=== PATIENT | female | born 1945 | race Caucasian/White ===

== ENCOUNTER → 2017-05-30 | Outpatient (CLI) | payer OTHER, MEDICAID | LOC: BHFA 10:45 | PROVIDERS: ATTEND Internal Medicine Cardiovascular Disease | DX: R01.1 Cardiac murmur, unspecified (principal) ==

== ENCOUNTER → 2017-06-19 | Outpatient (CLI) | payer OTHER, MEDICAID | LOC: BHFA 10:45 | PROVIDERS: ATTEND Internal Medicine Interventional Cardiology | DX: I10 Essential (primary) hypertension (principal); E78.5 Hyperlipidemia, unspecified ==

== ENCOUNTER → 2017-06-26 | Outpatient (CLI) | payer OTHER, MEDICAID | LOC: FIMAGING 15:30 | PROVIDERS: ATTEND Family Medicine | DX: M48.06 Spinal stenosis, lumbar region (principal); M54.16 Radiculopathy, lumbar region; M51.34 Other intervertebral disc degeneration, thoracic region; M51.35 Other intervertebral disc degeneration, thoracolumbar region; D64.9 Anemia, unspecified; N39.41 Urge incontinence; R01.1 Cardiac murmur, unspecified; M51.36 Other intervertebral disc degeneration, lumbar region; M48.07 Spinal stenosis, lumbosacral region ==

== ENCOUNTER → 2017-11-13 | Outpatient (CLI) | payer OTHER, MEDICAID | LOC: FIMAGING 13:10 | PROVIDERS: ATTEND Physician Assistant | DX: Z12.31 Encounter for screening mammogram for malignant neoplasm of breast (principal); Z80.3 Family history of malignant neoplasm of breast | CPT/HCPCS: G0202 ==

== ENCOUNTER → 2017-11-19 | Outpatient (CLI) | payer OTHER, MEDICAID | LOC: BMCIMAGING 07:13 | PROVIDERS: ATTEND Physician Assistant | DX: R16.0 Hepatomegaly, not elsewhere classified (principal); E66.9 Obesity, unspecified ==

== ENCOUNTER 2018-03-15 17:14 | Emergency (ER) | payer OTHER, MEDICAID ==
[2018-03-15 17:30] VITALS: BP 179/77
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
== END 2018-03-15 20:06 | disposition home or self-care (01) ==
LOC: EEVIPCON 17:14
DX: S80.01XA Contusion of right knee, initial encounter (principal); I10 Essential (primary) hypertension; J45.909 Unspecified asthma, uncomplicated; F17.200 Nicotine dependence, unspecified, uncomplicated; Z79.82 Long term (current) use of aspirin; V03.99XA Pedestrian with other conveyance injured in collision with car, pick-up truck or van, unspecified whether traffic or nontraffic accident, initial encounter; Y92.480 Sidewalk as the place of occurrence of the external cause; Y99.8 Other external cause status; Y93.55 Activity, bike riding

== ENCOUNTER → 2018-03-31 | Outpatient (CLI) | payer OTHER, MEDICAID | LOC: FIMAGING 16:41 | PROVIDERS: ATTEND Family Medicine | DX: M50.30 Other cervical disc degeneration, unspecified cervical region (principal) ==

== ENCOUNTER 2018-05-19 11:03 | Day surgery (SDC) | payer OTHER, MEDICAID ==
[2018-05-19] MEDS ORDERED: LIDOCAINE 1% 2 ML INJ ID PRN (11:19)
[2018-05-19] MEDS ORDERED: LR 1,000 ML IV ONE (11:19)
--- NOTE | 2018-05-19 12:05 | PDGENHP ---
History & Physical Chief Complaint: Diarrhea History of Present Illness: Chronic diarrhea Pertinent Past, Social, Family History: Sleep apnea. Neuropathy. Chronic pain. Obesity. No tobacco or ETOH Relevant Physical Exam: NAD. Dental implants. CTA B/L with diminshed respiratory sounds. RRR TRIP 2/6 LSB. Obese. Soft. NT/ND. NABS. No edema Cardiorespiratory Assessment: ASA III. Colonoscopy with MAC.
--- NOTE | 2018-05-19 12:11 | CPEKG ---
Heart Rate: 64 RR Interval: 938 P-R Interval: 180 QRSD Interval: 98 QT Interval: 452 QTC Interval: 467 P [place]: 52 QRS [place]: 19 T Wave [place]: 60 EKG Severity - NORMAL ECG - EKG Impression: SINUS RHYTHM Electronically Signed By: Frandy Molina 19-May-2018 15:15:27
--- NOTE | 2018-05-19 12:51 | PDANEPAE ---
ANE History of Present Illness 72 year old female for colonoscopy. ANE Past Medical History - Cardiovascular History Hx Hypertension: Yes Hx Arrhythmias: No Hx Coronary Artery / Peripheral Vascular Disease: No Hx CHF / Valvular Disease: Yes - Pulmonary History Hx COPD: Yes Hx Asthma/Reactive Airway Disease: Yes Hx Recent Upper Respiratory Infection: Yes Hx Oxygen in Use at Home: Yes Hx Sleep Apnea: Yes Sleep Apnea Screening Result - Last Documented: Positive Pulmonary History Comment: Oxygen use at night/sleeping - Neurologic History Hx Cerebrovascular Accident: Yes Hx Seizures: No Hx Dementia: No Neurologic History Comment: TIA's last year - Endocrine History Hx Diabetes: No Hypothyroid: No Hyperthyroid: No - Renal History Hx Renal Disorders: Yes Renal History Comment: frequency and incontinence - Liver History Hx Hepatic Disorders: No - Neurological & Psychiatric Hx Hx Neurological and Psychiatric Disorders: Yes Neurological / Psychiatric History Comment: Bipolar - Cancer History Hx Cancer: No - Congenital Disorder History Hx Congenital Disorders: No - GI History Hx Gastrointestinal Disorders: No - Other Health History Other Health History: Dermatitis - Chronic Pain History Chronic Pain: Yes - Surgical History Prior Surgeries: Right Hip Replacement 2012. All Teeth Extracted 2011. Right Knee Replacement 2010. Left Shoulder Rotator Cuff 2003. Broken Nose surgery x 3 1985. Benign Colon Polyps. Benign Left Breast Biopsy's ANE Review of Systems Review of systems is: negative Review of Systems: - Exercise capacity Exercise capacity: <4 METS METS (RN): 2 METS ANE Patient History - Allergies Allergies/Adverse Reactions: haloperidol [From Haldol] Allergy (Intermediate, Verified 03/15/18 17:23) made me crazy haloperidol lactate [From Haldol] Allergy (Intermediate, Verified 03/15/18 17:23 ) made me crazy hydrocortisone [Hydrocortisone] Allergy (Intermediate, Verified 03/15/18 17:23) RASH, SWELLING, ITCHING amlodipine Allergy (Verified 03/15/18 17:32) chlorpromazine [From Thorazine] Allergy (Verified 03/15/18 17:32) prednisone Allergy (Verified 05/19/18 11:45) Proton Pump Inhibitors Allergy (Verified 03/15/18 17:32) Sulfa (Sulfonamide Antibiotics) Allergy (Verified 03/15/18 17:23) SORE THROAT,FEVER,MOUTH BLISTERS tramadol [From Ultram] Allergy (Verified 03/15/18 17:32) venlafaxine Allergy (Verified 03/15/18 17:23) SORES IN MOUTH - Home Medications Home Medications: Advair 250/50 (RX) 04/23/16 [Last Taken 05/12/18] Allopurinol 04/23/16 [Last Taken 05/18/18] Atenolol 04/23/16 [Last Taken 05/18/18] Crestor 04/23/16 [Last Taken 05/18/18] Depakote ER 250 MG (RX) 04/23/16 [Last Taken 05/18/18] Depakote ER 500 MG (RX) 04/23/16 [Last Taken 05/18/18] GABAPENTIN 04/23/16 [Last Taken 05/19/18] Lasix 04/23/16 [Last Taken 05/18/18] Oxybutynin Chloride 04/23/16 [Last Taken 11/20/17] Proair Hfa Icu (RX) 04/23/16 [Last Taken 07/23/17] Aspirin 03/15/18 [Last Taken 04/19/18] Naltrexone 03/15/18 [Last Taken 05/18/18] Wellbutrin Sr 05/19/18 [Last Taken 05/18/18] - NPO status NPO Status: no food or drink >8 hours NPO Since - Liquids (Date): 05/19/18 NPO Since - Liquids (Time): 08:00 NPO Since - Solids (Date): 05/18/18 NPO Since - Solids (Time): 07:00 - Anes Hx Anes Hx: no prior problems - Smoking Hx Smoking Status: Light smoker - Alcohol Use Alcohol Use: None - Family Anes Hx Family Anes Hx: neg - N/A ANE Labs/Vital Signs - Vital Signs Vital Signs: reviewed preoperatively; see RN documention for details Blood Pressure: 134/63 Heart Rate: 66 Respiratory Rate: 14 O2 Sat (%): 92 Height: 167.64 cm Weight: 85.275 kg ANE Physical Exam - Airway Neck exam: FROM Mallampati Score: Class 2 Mouth exam: normal dental/mouth exam - Pulmonary Pulmonary: no respiratory distress - Cardiovascular Cardiovascular: regular rate and rhythym - ASA Status ASA Status: III ANE Anesthesia Plan Anesthesia Plan: GA with mask Total IV Anesthesia: Yes
[2018-05-19] MEDS ORDERED: PROPOFOL/EMULSION 500 MG/50 ML BOTTLE IV ONE (12:55)
[2018-05-19] MEDS ORDERED: LR 500 ML IV PRN (13:12)
[2018-05-19] MEDS ORDERED: NALOXONE HCL 0.4 MG/ML INJ IVP PRN (13:12)
[2018-05-19] MEDS ORDERED: PHENYLEPHRINE HCL 100 MCG/ML SYR IVP PRN (13:12)
[2018-05-19] MEDS ORDERED: fentaNYL 100 MCG/2 ML INJ IVP PRN (13:12)
--- NOTE | 2018-05-19 13:26 | GIREPORT ---
[facility] [place] Surgical Services - Endoscopy Department Patient Name: Racheal Khan Procedure Date: 05/19/2018 11:54 AM Patient Type: Outpatient Attending MD/ ER Physician: Pete Valencia MD Procedure: Colonoscopy Indications: Chronic diarrhea Providers: Pete Valencia MD Medicines: Propofol per Anesthesia Complications: No immediate complications. Description of Procedure: After obtaining informed consent, the scope was passed under direct vis ion. Throughout the procedure, the patient's blood pressure, pulse, and oxyg en saturations were monitored continuously. The Colonoscope was introduced through the anus and advanced to the terminal ileum. The colonoscopy wa s performed without difficulty. The patient tolerated the procedure well. The quality of the bowel preparation was good. The terminal ileum, ileoceca l valve, appendiceal orifice, and rectum were photographed. Findings: The perianal and digital rectal examinations were normal. Pertinent negatives include normal sphincter tone and no palpable rectal lesions. The terminal ileum appeared normal. The area from rectum to cecum appeared normal. Biopsies for histology w ere taken with a cold forceps from the right colon and left colon for evalu ation of microscopic colitis. Estimated Blood Loss: Estimated blood loss: none. Post Op Diagnosis: - The examined portion of the ileum was normal. - The rectum to cecum is normal. Biopsied. Recommendation: - Await pathology results. - Repeat colonoscopy is not recommended for screening purposes. - Resume previous diet. - Continue present medications. - Return to physician printer assistant as previously scheduled. - Patient has a contact number available for emergencies. The signs and symptoms of potential delayed complications were discussed with the pat ient. Return to normal activities tomorrow. Written discharge instructions we re provided to the patient. - Thank you for allowing me to be involved in the care of your patient. Attending Participation: I personally performed the entire procedure without the assistance of a fellow, resident or surg ical printer assistant. Pete Valencia MD Pete Valencia MD 05/19/2018 1:26:07 PM This report has been signed electronicallyDavid MD Erik Number of Addenda: 0 Note Initiated On: 05/19/2018 11:54 AM Total Procedure Duration Time 0 hours 18 minutes 50 seconds [email or web address]
--- NOTE | 2018-05-19 13:41 | POSTANESTH ---
Post Anesthetic Evaluation Cardiovascular Status: Normal, Stable, Similar to Pre-Op Cond Respiratory Status: Normal, Stable, Similar to Pre-op Cond. Level of Consciousness/Mental Status: Can Participate in Eval, Alert and Oriented Pain Control: Adequate, Prn Tx Ordered Nausea/Vomiting Control: Adequate, Prn Tx Ordered Complications Possibly Related to Anesthesia: None Noted (Wide awake, eating ice chips and thankful for her care less than 10minutes after surgery. Patient doing great following GA (TIVA))
[2018-05-19 14:11] VITALS: BP 160/69
== END 2018-05-19 14:24 | disposition home or self-care (01) ==
LOC: FSGY 11:03
PROVIDERS: ATTEND Internal Medicine Gastroenterology
PROC: 0DBE8ZX Excision of Large Intestine, Via Natural or Artificial Opening Endoscopic, Diagnostic (ICD-10-PCS; principal; 2018-05-19 12:30)
DX: K52.839 Microscopic colitis, unspecified (principal)
CPT/HCPCS: J2704

== ENCOUNTER 2018-05-21 12:53 | Emergency (ER) | payer OTHER, MEDICAID ==
[2018-05-21] MEDS ORDERED: NS 500 ML IV ONE (13:13)
--- NOTE | 2018-05-21 13:24 | CPEKG ---
Heart Rate: 60 RR Interval: 1000 P-R Interval: 172 QRSD Interval: 98 QT Interval: 440 QTC Interval: 440 P [place]: 49 QRS [place]: 10 T Wave [place]: 70 EKG Severity - ABNORMAL ECG - EKG Impression: SINUS RHYTHM EKG Impression: PROBABLE INFERIOR INFARCT, OLD Electronically Signed By: Jeffrey Brantley 21-May-2018 15:11:21
[2018-05-21] MEDS ORDERED: POTASSIUM CL 20 MEQ/15 ML UDCUP PO ONE (14:02)
[2018-05-21] MEDS ORDERED: NS 1,000 ML IV ONE (14:20)
[2018-05-21 14:28] LABS: PLATELET COUNT 205 10^3/uL (150-400)
--- NOTE | 2018-05-21 14:32 | EDPHY ---
H & P Stated Complaint: Weakness, "feeling dehydrated" x 1 week. Time Seen by Provider: 05/21/18 13:11 HPI/ROS: This patient complains of feeling of dehydration over the past week or so. She explains that she has had chronic diarrhea over the past 2-3 months going several times a day with loose watery stools is currently undergoing workup with Gastroenterology as an outpatient cleaning a colonoscopy 3 days ago without complications. She complains of generalized weakness as her chief complaint and attributes this to dehydration. She reports she has decreased appetite recently as well. She continues her current medications. She arrived here by public transportation for further evaluation. ROS: Constitutional: No fevers or chills. HEENT: No URI symptoms. No sore throat or ear pain. Neuro: No headache currently. She has chronic neuropathy to her toes that is painful and tingling without recent change. No focal symptoms. No bowel or bladder incontinence. Pulmonary: No cough. She has no dyspnea at rest. Cardiovascular: No chest pain. No leg swelling. She does have mild dyspnea on exertion which is baseline for her. GI: Chronic diarrhea as per HPI. No bloody stool. No nausea or vomiting. No abdominal pain at this time. : No dysuria, frequency urgency. Musculoskeletal: She has chronic low back pain with moderate intensity that is slightly worsened since a minor fall on Saturday, 5 days prior to arrival. She reports that she became lightheaded at that time with position change and then had a fall but denies LOC. She did not fall directly on her back but feels that she"wrenched her back". Endocrine: No complaints Integumentary: No diaphoresis or rash. Source: Patient Exam Limitations: No limitations - Personal History Current Tetanus Diphtheria and Acellular Pertussis (TDAP): Yes Tetanus Vaccine Date: 03/09/13 - Medical/Surgical History PMH: Mood disorder. Hx Asthma: Yes Hx Chronic Respiratory Disease: Yes Hx Diabetes: No Hx Cardiac Disease: No Hx Renal Disease: No Hx Cirrhosis: No Hx Alcoholism: No Hx HIV/AIDS: No Hx Splenectomy or Spleen Trauma: No Other PMH: HTN, rt hip replacement, bipolar, L shoulder, chronic diarrhea - Family History Significant Family History: No pertinent family hx - Social History Smoking Status: Light smoker Alcohol Use: Occasionally Drug Use: Marijuana Additional Social History: She denies any other recreational drugs. - Physical Exam Exam: General Appearance: Alert, no distress. Eyes: Pupils equal and round no pallor or injection. ENT, Mouth: Mucous membranes dry. Respiratory: There are no retractions, lungs are clear to auscultation. Cardiovascular: Regular rate and rhythm. Gastrointestinal: Abdomen is soft and nontender, no masses, bowel sounds normal. Neurological: GCS 15. Cranial nerves 2-12 are grossly intact. No focal sensory motor deficits are appreciated. Skin: Warm and dry, no rashes. Musculoskeletal: Neck is supple nontender. Extremities are symmetrical, full range of motion. Psychiatric: Flat affect. No pressured speech. No flight of ideas or other abnormal findings. She denies any suicidal ideation or homicidal ideation DIFFERENTIAL DIAGNOSIS: After history and physical exam differential diagnosis was considered for dehydration, electrolyte abnormality, UTI, thyroid illness, medication side effects, myocardial ischemia Constitutional: Initial Vital Signs Temperature (C) 36.6 C 05/21/18 13:00 Heart Rate 73 05/21/18 13:00 Respiratory Rate 18 05/21/18 13:00 Blood Pressure 162/78 H 05/21/18 13:00 O2 Sat (%) 93 05/21/18 13:00 O2 Delivery Mode Room Air Allergies/Adverse Reactions: amlodipine Allergy (Verified 05/21/18 13:07) Pt unsure of reaction chlorpromazine [From Thorazine] Allergy (Verified 05/21/18 13:07) Pt reports stiffness and "makes me crazy" haloperidol [From Haldol] Allergy (Verified 05/21/18 13:07) Pt reports "made me crazy" haloperidol lactate [From Haldol] Allergy (Verified 05/21/18 13:07) Pt reports "made me crazy" hydrocortisone [Hydrocortisone] Allergy (Verified 05/21/18 13:07) PT REPORTS RASH, SWELLING, ITCHING prednisone Allergy (Verified 05/21/18 13:07) Pt reports becoming manic Proton Pump Inhibitors Allergy (Verified 05/21/18 13:07) Pt unsure of reaction Sulfa (Sulfonamide Antibiotics) Allergy (Verified 05/21/18 13:07) Pt reports SORE THROAT,FEVER,MOUTH BLISTERS tramadol [From Ultram] Allergy (Verified 05/21/18 13:07) PT reports passing out venlafaxine Allergy (Verified 05/21/18 13:07) Pt reports SORES IN MOUTH Home Medications: Medication Instructions Recorded Advair 250/50 (RX) 04/23/16 Allopurinol 04/23/16 Atenolol 04/23/16 Crestor 04/23/16 Depakote ER 500 MG (RX) 04/23/16 GABAPENTIN 04/23/16 Lasix 04/23/16 Oxybutynin Chloride 04/23/16 Aspirin 03/15/18 Wellbutrin Sr 05/19/18 Potassium Cl [Klor-Con 20 meq (*)] 20 meq PO DAILY #5 tab 05/21/18 Medical Decision Making - Diagnostics EKG Interpretation: 12 lead EKG performed shortly after arrival At 1:21 p.m. Reveals sinus rhythm at 60 Intervals: Normal throughout [place]: Normal throughout ST segments: Normal throughout Q-wave inferiorly in lead 3 When compared to prior EKG dated 05/19/2018 there is no interval change. Overall assessment sinus rhythm with old Q-wave. No acute ST changes. ED Course/Re-evaluation: 500 cc normal saline bolus initially. Patient still unable to urinate of this is followed by 1 L saline bolus Labs: Comp met panel notable for hypokalemia with potassium at 3.o CBC is normal. TSH and difficult levels are pending. UA dip positive for 1+ leukocytes only. Nitrites are negative. Urine dip is pending Patient is given supplemental potassium 20 mEq p. O. Discussion: Patient here realize weakness I think is attributable to combination of dehydration and hypokalemia attributable to her chronic diarrhea. I counseled her regarding this. No evidence of coronary ischemia or other concerning findings. Depakote levels pending but do not anticipate that she has talked about toxicity based on her presentation. - Data Points Laboratory Results: Laboratory Results 05/21/18 13:34 05/21/18 05/21/18 05/21/18 13:42 13:41 13:34 WBC RBC Hgb Hct MCV MCH MCHC RDW Plt Count MPV Neut % (Auto) Lymph % (Auto) Lee % (Auto) Eos % (Auto) Baso % (Auto) Nucleat RBC Rel Count Absolute Neuts (auto) Absolute Lymphs (auto) Absolute Monos (auto) Absolute Eos (auto) Absolute Basos (auto) Absolute Nucleated RBC Immature Gran % Immature Gran # POC Sodium 141 mEq/L mEq/L (135-145) POC Potassium 3.0 mEq/L L mEq/L (3.3-5.0) POC Chloride 102.0 mEq/L mEq/L (97-110) POC Total CO2 31 mEq/L mEq/L (22-31) POC BUN 14 mg/dL mg/dL (7-23) POC Creatinine 0.9 mg/dL mg/dL (0.6-1.0) POC Glucose 96 mg/dL mg/dL (70-100) POC Calcium 9.1 mg/dL mg/dL (8.5-10.4) POC Total Bilirubin 0.5 mg/dL mg/dL (0.1-1.4) POC AST 32 IU/L IU/L (14-46) POC ALT 27 IU/L IU/L (9-52) POC Alk Phosphatase 94 IU/L IU/L (38-126) POC Troponin I 0.01 ng/mL ng/mL (0.00-0.08) POC Total Protein 5.9 g/dL L g/dL (6.3-8.2) POC Albumin 3.3 g/dL L g/dL (3.5-5.0) TSH 1.240 uIU/mL uIU/mL (0.465-4.680) 05/21/18 13:34 WBC 7.27 10^3/uL 10^3/uL (3.80-9.50) RBC 3.75 10^6/uL L 10^6/uL (4.18-5.33) Hgb 12.5 g/dL L g/dL (12.6-16.3) Hct 36.1 % L % (38.0-47.0) MCV 96.3 fL fL (81.5-99.8) MCH 33.3 pg pg (27.9-34.1) MCHC 34.6 g/dL g/dL (32.4-36.7) RDW 13.9 % % (11.5-15.2) Plt Count 205 10^3/uL 10^3/uL (150-400) MPV 10.5 fL fL (8.7-11.7) Neut % (Auto) 53.1 % % (39.3-74.2) Lymph % (Auto) 39.9 % % (15.0-45.0) Lee % (Auto) 5.2 % % (4.5-13.0) Eos % (Auto) 1.2 % % (0.6-7.6) Baso % (Auto) 0.3 % % (0.3-1.7) Nucleat RBC Rel Count 0.0 % % (0.0-0.2) Absolute Neuts (auto) 3.86 10^3/uL 10^3/uL (1.70-6.50) Absolute Lymphs (auto) 2.90 10^3/uL 10^3/uL (1.00-3.00) Absolute Monos (auto) 0.38 10^3/uL 10^3/uL (0.30-0.80) Absolute Eos (auto) 0.09 10^3/uL 10^3/uL (0.03-0.40) Absolute Basos (auto) 0.02 10^3/uL 10^3/uL (0.02-0.10) Absolute Nucleated RBC 0.00 10^3/uL 10^3/uL (0-0.01) Immature Gran % 0.3 % % (0.0-1.1) Immature Gran # 0.02 10^3/uL 10^3/uL (0.00-0.10) POC Sodium POC Potassium POC Chloride POC Total CO2 POC BUN POC Creatinine POC Glucose POC Calcium POC Total Bilirubin POC AST POC ALT POC Alk Phosphatase POC Troponin I POC Total Protein POC Albumin TSH Medications Given: Discontinued Medications Sodium Chloride (Ns) 500 mls @ 0 mls/hr IV EDNOW ONE; Wide Open PRN Reason: Protocol Stop: 05/21/18 13:14 Last Admin: 05/21/18 13:35 Dose: 500 mls Sodium Chloride (Ns) 1,000 mls @ 0 mls/hr IV ONCE ONE; Wide Open PRN Reason: Protocol Stop: 05/21/18 14:21 Last Admin: 05/21/18 14:25 Dose: 1,000 mls Potassium Chloride (Potassium Chloride Oral Liquid) 20 meq PO EDNOW ONE Stop: 05/21/18 14:03 Last Admin: 05/21/18 14:21 Dose: 20 meq Point of Care Test Results: Chemistry 05/21/18 05/21/18 13:42 13:41 POC Sodium 141 mEq/L mEq/L (135-145) POC Potassium 3.0 mEq/L L mEq/L (3.3-5.0) POC Chloride 102.0 mEq/L mEq/L (97-110) POC Total CO2 31 mEq/L mEq/L (22-31) POC BUN 14 mg/dL mg/dL (7-23) POC Creatinine 0.9 mg/dL mg/dL (0.6-1.0) POC Glucose 96 mg/dL mg/dL (70-100) POC Calcium 9.1 mg/dL mg/dL (8.5-10.4) POC Total Bilirubin 0.5 mg/dL mg/dL (0.1-1.4) POC AST 32 IU/L IU/L (14-46) POC ALT 27 IU/L IU/L (9-52) POC Alk Phosphatase 94 IU/L IU/L (38-126) POC Troponin I 0.01 ng/mL ng/mL (0.00-0.08) POC Total Protein 5.9 g/dL L g/dL (6.3-8.2) POC Albumin 3.3 g/dL L g/dL (3.5-5.0) Urine Dip Collection Date 05/21/18 Collection Time 14:56 Specific [place] (1.002-1.030) 1.010 PH (5.0-7.5) 5.5 Leukocytes (Negative) 1+ Nitrites (Negative) Negative Protein (Negative) Negative Glucose (Negative) Negative Ketones (Negative) Negative Urobilnogen (0.2-1.0 EU) 0.2 Bilirubin (Negative) Negative Blood (Negative) Negative Departure - Departure Disposition: Home, Routine, Self-Care Clinical Impression: Dehydration, Hypokalemia Low back strain Qualifiers: Encounter type: initial encounter Qualified Code(s): S39.012A - Strain of muscle, fascia and tendon of lower back, initial encounter Condition: Good Instructions: Hypokalemia (ED) Additional Instructions: Diagnoses: 1. Dehydration 2. Hypokalemia 3. Low back strain Plan: Stop the oxybutynin while taking supplemental potassium for the next 5 days. Then restart the oxybutynin. Call your primary care physician to arrange for a recheck in 3-7 days including a recheck potassium level at that time. Drink plenty fluids Follow up with Gastroenterology as well. Ibuprofen Tylenol for back pain as needed. Return for any significant worsening despite the treatment plan Referrals: Shelbi Villa MD [Primary Care Provider] - As per Instructions Prescriptions: Potassium Cl [Klor-Con 20 meq (*)] 20 meq PO DAILY #5 tab
[2018-05-21] MEDS ORDERED: IBUPROFEN 600 MG TAB PO ONE (15:17)
[2018-05-21 16:00] VITALS: BP 151/78
== END 2018-05-21 16:00 | disposition home or self-care (01) ==
LOC: CED 12:53
DX: S39.012A Strain of muscle, fascia and tendon of lower back, initial encounter (principal); E87.6 Hypokalemia; E86.9 Volume depletion, unspecified; I10 Essential (primary) hypertension; J45.909 Unspecified asthma, uncomplicated; F17.200 Nicotine dependence, unspecified, uncomplicated; Z79.82 Long term (current) use of aspirin; X58.XXXA Exposure to other specified factors, initial encounter
CPT/HCPCS: 80053-PO; 84484-PO

== ENCOUNTER → 2018-08-01 | Outpatient (CLI) | payer OTHER, MEDICAID | LOC: BMCIMAGING 08:30 | PROVIDERS: ATTEND Family Medicine | DX: K76.0 Fatty (change of) liver, not elsewhere classified (principal) ==

== ENCOUNTER 2019-04-26 18:43 | Inpatient (IN) | payer OTHER, MEDICAID ==
[2019-04-26] MEDS ORDERED: NS 1,000 ML IV ONE (19:16)
[2019-04-26] MEDS ORDERED: IOPAMIDOL (ISOVUE-300) 100 ML BTL ONE (19:22)
[2019-04-26] MEDS ORDERED: ONDANSETRON 4 MG/2 ML VIAL IVP ONE (19:24)
[2019-04-26 19:28] LABS: PLATELET COUNT 286 10^3/uL (150-400)
--- NOTE | 2019-04-26 19:38 | EDPHY ---
H & P Time Seen by Provider: 04/26/19 18:56 HPI/ROS: Chief complaint. Abdominal pain HPI. 73-year-old female history of abdominal pain for 1 week. It is mid abdominal area. She describes as "upset". She says it radiates to her back. She has had nausea and vomiting. No fever. No urinary symptoms. Symptoms are not worse with movement or eating. Again no fever. She has chronic diarrhea but has been having diarrhea for 1 week. No recent travel or sick contacts. No chest pain or shortness of breath. ROS 10 systems were reviewed and negative with the exception of the elements mentioned in the history of present illness Past Medical/Surgical History: Hypertension, bipolar illness, chronic diarrhea Social History: Single, daily smoker, no alcohol Smoking Status: Heavy smoker Physical Exam: General Appearance: Alert well-developed female mild distress vital signs are stable Eyes: Pupils equal and round no pallor or injection. ENT, Mouth: Mucous membranes are moist. Respiratory: There are no retractions, lungs are clear to auscultation. Cardiovascular: Regular rate and rhythm. Gastrointestinal: Abdomen is soft diffusely tender about the mid abdomen. No particular tenderness in the epigastrium, right upper quadrant or at McBurney's point. Normal bowel sounds. No masses. Neurological: Awake and alert, sensory and motor exams grossly normal. Skin: Warm and dry, no rashes. Musculoskeletal: Neck is supple nontender. Extremities symmetrical, full range of motion. Psychiatric: Patient is oriented X 3, there is no agitation. Constitutional: Initial Vital Signs Temperature (C) 36.8 C 04/26/19 18:50 Heart Rate 71 04/26/19 18:50 Respiratory Rate 18 04/26/19 18:50 Blood Pressure 152/59 H 04/26/19 18:50 O2 Sat (%) 97 04/26/19 18:50 Allergies/Adverse Reactions: amlodipine Allergy (Verified 04/26/19 18:48) Pt unsure of reaction chlorpromazine [From Thorazine] Allergy (Verified 04/26/19 18:48) Pt reports stiffness and "makes me crazy" haloperidol [From Haldol] Allergy (Verified 04/26/19 18:48) Pt reports "made me crazy" haloperidol lactate [From Haldol] Allergy (Verified 04/26/19 18:48) Pt reports "made me crazy" hydrocortisone [Hydrocortisone] Allergy (Verified 04/26/19 18:48) PT REPORTS RASH, SWELLING, ITCHING prednisone Allergy (Verified 04/26/19 18:48) Pt reports becoming manic Proton Pump Inhibitors Allergy (Verified 04/26/19 18:48) Pt unsure of reaction Sulfa (Sulfonamide Antibiotics) Allergy (Verified 04/26/19 18:48) Pt reports SORE THROAT,FEVER,MOUTH BLISTERS tramadol [From Ultram] Allergy (Verified 04/26/19 18:48) PT reports passing out venlafaxine Allergy (Verified 04/26/19 18:48) Pt reports SORES IN MOUTH Home Medications: Medication Instructions Recorded Advair 250/50 (RX) 04/23/16 Allopurinol 04/23/16 Atenolol 04/23/16 Crestor 04/23/16 Depakote ER 500 MG (RX) 04/23/16 GABAPENTIN 04/23/16 Lasix 04/23/16 Oxybutynin Chloride 04/23/16 Aspirin 03/15/18 Wellbutrin Sr 05/19/18 Potassium Cl [Klor-Con 20 meq (*)] 20 meq PO DAILY #5 tab 05/21/18 Medical Decision Making - Diagnostics Imaging Results: Imaging Impressions Abdomen CT 04/26/19 19:16 Impression: 1. Normal CT abdomen and pelvis with contrast enhancement. 2. No CT evidence of appendicitis, abscess or bowel obstruction. Findings discussed with Mark Contreras M.D. at 19:54 hour, 04/26/2019. CT abdomen pelvis with IV contrast reviewed by me and discussed with Dr. Elam shows no acute findings Procedures: IV normal saline and Zofran for nausea IV potassium and magnesium for hypokalemia ED Course/Re-evaluation: On re-evaluation at 8:20 p.m. Patient is stable. Patient and I discussed imaging and lab results. We discussed treatment plan including recommendation for admission. She expresses understanding and agreement I consulted discussed case with hospitalist who agrees with care and agrees with admission Differential Diagnosis: I considered diverticulitis, pancreatitis, small-bowel obstruction. Patient also has significant hypokalemia - Data Points Laboratory Results: Laboratory Results 04/26/19 19:00 04/26/19 19:00 05/26/19 05/26/19 05/26/19 19:00 19:00 19:00 WBC 9.17 10^3/uL 10^3/uL (3.80-9.50) RBC 4.14 10^6/uL L 10^6/uL (4.18-5.33) Hgb 13.5 g/dL g/dL (12.6-16.3) POC Hgb 13.3 gm/dL gm/dL (12.6-16.3) Hct 38.0 % % (38.0-47.0) POC Hct 39 % % (38-47) MCV 91.8 fL fL (81.5-99.8) MCH 32.6 pg pg (27.9-34.1) MCHC 35.5 g/dL g/dL (32.4-36.7) RDW 13.1 % % (11.5-15.2) Plt Count 286 10^3/uL 10^3/uL (150-400) MPV 10.0 fL fL (8.7-11.7) Neut % (Auto) 52.3 % % (39.3-74.2) Lymph % (Auto) 38.8 % % (15.0-45.0) [place] % (Auto) 7.6 % % (4.5-13.0) Eos % (Auto) 0.7 % % (0.6-7.6) Baso % (Auto) 0.3 % % (0.3-1.7) Nucleat RBC Rel Count 0.0 % % (0.0-0.2) Absolute Neuts (auto) 4.79 10^3/uL 10^3/uL (1.70-6.50) Absolute Lymphs (auto) 3.56 10^3/uL H 10^3/uL (1.00-3.00) Absolute Monos (auto) 0.70 10^3/uL 10^3/uL (0.30-0.80) Absolute Eos (auto) 0.06 10^3/uL 10^3/uL (0.03-0.40) Absolute Basos (auto) 0.03 10^3/uL 10^3/uL (0.02-0.10) Absolute Nucleated RBC 0.00 10^3/uL 10^3/uL (0-0.01) Immature Gran % 0.3 % % (0.0-1.1) Immature Gran # 0.03 10^3/uL 10^3/uL (0.00-0.10) POC Sodium 142 mEq/L mEq/L (135-145) Sodium 140 mEq/L mEq/L (135-145) POC Potassium 2.8 mEq/L L mEq/L (3.3-5.0) Potassium 3.1 mEq/L L mEq/L (3.5-5.2) POC Chloride 107 mEq/L mEq/L (97-110) Chloride 107 mEq/L mEq/L (97-110) Carbon Dioxide 20 mEq/l L mEq/l (22-31) POC Total CO2 21 mEq/L L mEq/L (22-31) Anion Gap 13 mEq/L mEq/L (6-14) POC BUN 11 mg/dL mg/dL (7-23) BUN 13 mg/dL mg/dL (7-23) Creatinine 0.7 mg/dL mg/dL (0.6-1.0) POC Creatinine 0.7 mg/dL mg/dL (0.6-1.0) Estimated GFR > 60 Glucose 108 mg/dL H mg/dL (70-100) POC Glucose 109 mg/dL H mg/dL (70-100) Calcium 9.8 mg/dL mg/dL (8.5-10.4) Total Bilirubin 0.4 mg/dL mg/dL (0.1-1.4) Conjugated Bilirubin 0.0 mg/dL mg/dL (0.0-0.5) Unconjugated Bilirubin 0.4 mg/dL mg/dL (0.0-1.1) AST 63 IU/L H IU/L (14-46) ALT 50 IU/L IU/L (9-52) Alkaline Phosphatase 115 IU/L IU/L (38-126) Total Protein 6.2 g/dL L g/dL (6.3-8.2) Albumin 3.9 g/dL g/dL (3.5-5.0) Lipase 425 IU/L H IU/L (23-300) Medications Given: Discontinued Medications Sodium Chloride (Ns) 1,000 mls @ 0 mls/hr IV EDNOW ONE; Wide Open PRN Reason: Protocol Stop: 04/26/19 19:17 Last Admin: 04/26/19 19:22 Dose: 1,000 mls Ondansetron HCl (Zofran) 4 mg IVP EDNOW ONE Stop: 04/26/19 19:25 Last Admin: 04/26/19 20:04 Dose: 4 mg Point of Care Test Results: Chemistry 04/26/19 19:00 POC Sodium 142 mEq/L mEq/L (135-145) POC Potassium 2.8 mEq/L L mEq/L (3.3-5.0) POC Chloride 107 mEq/L mEq/L (97-110) POC Total CO2 21 mEq/L L mEq/L (22-31) POC BUN 11 mg/dL mg/dL (7-23) POC Creatinine 0.7 mg/dL mg/dL (0.6-1.0) POC Glucose 109 mg/dL H mg/dL (70-100) ISTAT H&H 04/26/19 19:00 POC Hgb 13.3 gm/dL gm/dL (12.6-16.3) POC Hct 39 % % (38-47) Departure - Departure Disposition: [facility] Acute Clinical Impression: Hypokalemia Diarrhea Qualifiers: Diarrhea type: unspecified type Qualified Code(s): R19.7 - Diarrhea, unspecified Pancreatitis Qualifiers: Chronicity: acute Pancreatitis type: unspecified pancreatitis type Acute pancreatitis complication: no infection or necrosis Qualified Code(s): K85.90 - Acute pancreatitis without necrosis or infection, unspecified Condition: Fair Referrals: Shelbi Villa MD [Primary Care Provider] - As per Instructions
[2019-04-26] MEDS ORDERED: MAGNESIUM SULF 1 GM/DEXTROSE 100 ML IV ONE (19:59)
[2019-04-26] MEDS ORDERED: POTASSIUM Cl (KCl) 40 MEQ in D5W 1/2 NS 1,000 ML IV SCH (20:00)
--- NOTE | 2019-04-26 22:08 | CPEKG ---
Test Reason : OPEN Blood Pressure : / mmHG Vent. Rate : 062 BPM Atrial Rate : 063 BPM P-R Int : 162 ms QRS Dur : 099 ms QT Int : 459 ms P-R-T Axes : 074 041 075 degrees QTc Int : 467 ms Sinus rhythm Confirmed by Mark Contreras ([id number]) on 04/26/2019 10:08:12 PM Referred By: Mark Contreras Confirmed By:Mark Contreras
[2019-04-26] MEDS ORDERED: ONDANSETRON 4 MG/2 ML VIAL IVP PRN (22:21)
[2019-04-26] MEDS ORDERED: ONDANSETRON DISINTEGRATING 4 MG TAB PO PRN (22:21)
[2019-04-26] MEDS ORDERED: ACETAMINOPHEN 325 MG TAB PO PRN (22:21)
[2019-04-26] MEDS ORDERED: PROTOCOL POTASSIUM 1 DOSE MISC PRN (22:24)
[2019-04-26] MEDS ORDERED: PROTOCOL MAGNESIUM 1 DOSE IV PRN (22:24)
--- NOTE | 2019-04-26 22:33 | PDGENHP ---
History and Physical - Chief Complaint abd pain, diarrhea - History of Present Illness 73-year-old female history of abdominal pain for 1 week. It is mid abdominal area. She describes as "upset". She says it radiates to her back. She has had nausea and vomiting. No fever. No urinary symptoms. Symptoms are not worse with movement or eating. She has chronic diarrhea but has had more diarrhea for 1 week. No recent travel or sick contacts. No chest pain or shortness of breath. no recent abx. she's had minimal oral intake In the ER, lipase is slightly elevated. CT abdomen is unremarkable no cp or sob. Past Medical/Surgical History: Hypertension, bipolar illness, chronic diarrhea Social History: Single, daily smoker, no alcohol FmHx: non contributory History Information - Allergies/Home Medication List Allergies/Adverse Reactions: amlodipine Allergy (Verified 04/26/19 18:48) Pt unsure of reaction chlorpromazine [From Thorazine] Allergy (Verified 04/26/19 18:48) Pt reports stiffness and "makes me crazy" haloperidol [From Haldol] Allergy (Verified 04/26/19 18:48) Pt reports "made me crazy" haloperidol lactate [From Haldol] Allergy (Verified 04/26/19 18:48) Pt reports "made me crazy" hydrocortisone [Hydrocortisone] Allergy (Verified 04/26/19 18:48) PT REPORTS RASH, SWELLING, ITCHING prednisone Allergy (Verified 04/26/19 18:48) Pt reports becoming manic Proton Pump Inhibitors Allergy (Verified 04/26/19 18:48) Pt unsure of reaction Sulfa (Sulfonamide Antibiotics) Allergy (Verified 04/26/19 18:48) Pt reports SORE THROAT,FEVER,MOUTH BLISTERS tramadol [From Ultram] Allergy (Verified 04/26/19 18:48) PT reports passing out venlafaxine Allergy (Verified 04/26/19 18:48) Pt reports SORES IN MOUTH Home Medications: Allopurinol [Allopurinol 100 MG (*)] 100 mg PO HS 04/23/16 [Last Taken 04/23/19] Atenolol [Tenormin 50 mg (*)] 50 mg PO DAILY 04/23/16 [Last Taken 04/23/19] Divalproex ER [Depakote ER 250 MG (*)] 250 mg PO BID 04/23/16 [Last Taken ] Furosemide [Lasix 20 MG (*)] 40 mg PO DAILY@1200 04/23/16 [Last Taken 04/23/19] Gabapentin [Neurontin 400 MG (*)] 800 mg PO BID@06,13 04/23/16 [Last Taken 04/23] Oxybutynin Chloride [Oxybutynin Chloride Er] 15 mg PO DAILY 04/23/16 [Last Taken 04/23/19] Rosuvastatin Calcium 5 mg PO HS 04/23/16 [Last Taken 04/23/19] buPROPion SR [Wellbutrin 150mg SR (*)] 150 mg PO DAILY 05/19/18 [Last Taken ] Cholecalciferol Vit D3 [Vitamin D3 (*)] 1,000 units PO DAILY 04/26/19 [Last Taken 04/23/19] Divalproex ER [Depakote ER 500 MG (*)] 500 mg PO BID 04/26/19 [Last Taken ] Folic Acid [Folic Acid 1 MG (*)] 1 mg PO DAILY 04/26/19 [Last Taken 04/23/19] Gabapentin [Neurontin 400 MG (*)] 1,200 mg PO HS 04/26/19 [Last Taken 04/23/19] Herbals/Supplements -Info Only 1 ea PO DAILY 04/26/19 [Last Taken 04/23/19] I have personally reviewed and updated: medical history, social history - Social History Smoking Status: Heavy smoker Review of Systems Review of Systems: ROS: 10pt was reviewed & negative except for what was stated in HPI & below Physical Exam Physical Exam: Temp Pulse Resp BP Pulse Ox 36.9 C 84 16 174/74 H 98 04/26/19 22:21 04/26/19 22:21 04/26/19 22:21 04/26/19 22:21 04/26/19 22:21 Constitutional: no apparent distress Eyes: PERRL Ears, Nose, Mouth, Throat: dry mucous membranes Cardiovascular: regular rate and rhythym Respiratory: no respiratory distress, no rales or rhonchi, clear to auscultation Gastrointestinal: normoactive bowel sounds, tenderness (mild epigastric tenderness), No rebound, No distension Skin: warm Musculoskeletal: generalized weakness Neurologic: AAOx3 Psychiatric: interacting appropriately, not anxious, not encephalopathic Lymph, Heme, Immunologic: No petechiae Lab Data & Imaging Review 04/26/19 19:00 04/26/19 19:00 WBC 9.17 10^3/uL (3.80-9.50) 04/26/19 19:00 RBC 4.14 10^6/uL (4.18-5.33) L 04/26/19 19:00 Hgb 13.5 g/dL (12.6-16.3) 04/26/19 19:00 POC Hgb 13.3 gm/dL (12.6-16.3) 04/26/19 19:00 Hct 38.0 % (38.0-47.0) 04/26/19 19: POC Hct 39 % (38-47) 04/26/19 19:00 MCV 91.8 fL (81.5-99.8) 04/26/19 19:00 MCH 32.6 pg (27.9-34.1) 04/26/19 19:00 MCHC 35.5 g/dL (32.4-36.7) 04/26/19 19:00 RDW 13.1 % (11.5-15.2) 04/26/19 19:00 Plt Count 286 10^3/uL (150-400) 04/26/19 19:00 MPV 10.0 fL (8.7-11.7) 04/26/19 19:00 Neut % (Auto) 52.3 % (39.3-74.2) 04/26/19 19:00 Lymph % (Auto) 38.8 % (15.0-45.0) 04/26/19 19:00 [place] % (Auto) 7.6 % (4.5-13.0) 04/26/19 19:00 Eos % (Auto) 0.7 % (0.6-7.6) 04/26/19 19:00 Baso % (Auto) 0.3 % (0.3-1.7) 04/26/19 19:00 Nucleat RBC Rel Count 0.0 % (0.0-0.2) 04/26/19 19:00 Absolute Neuts (auto) 4.79 10^3/uL (1.70-6.50) 04/26/19 19:00 Absolute Lymphs (auto) 3.56 10^3/uL (1.00-3.00) H 04/26/19 19:00 Absolute Monos (auto) 0.70 10^3/uL (0.30-0.80) 04/26/19 19:00 Absolute Eos (auto) 0.06 10^3/uL (0.03-0.40) 04/26/19 19:00 Absolute Basos (auto) 0.03 10^3/uL (0.02-0.10) 04/26/19 19:00 Absolute Nucleated RBC 0.00 10^3/uL (0-0.01) 04/26/19 19:00 Immature Gran % 0.3 % (0.0-1.1) 04/26/19 19:00 Immature Gran # 0.03 10^3/uL (0.00-0.10) 04/26/19 19:00 POC Sodium 142 mEq/L (135-145) 04/26/19 19:00 Sodium 140 mEq/L (135-145) 04/26/19 19:00 POC Potassium 2.8 mEq/L (3.3-5.0) L 04/26/19 19:00 Potassium 3.1 mEq/L (3.5-5.2) L 04/26/19 19:00 POC Chloride 107 mEq/L (97-110) 04/26/19 19:00 Chloride 107 mEq/L (97-110) 04/26/19 19:00 Carbon Dioxide 20 mEq/l (22-31) L 04/26/19 19:00 POC Total CO2 21 mEq/L (22-31) L 04/26/19 19:00 Anion Gap 13 mEq/L (6-14) 04/26/19 19:00 POC BUN 11 mg/dL (7-23) 04/26/19 19:00 BUN 13 mg/dL (7-23) 04/26/19 19:00 Creatinine 0.7 mg/dL (0.6-1.0) 04/26/19 19:00 POC Creatinine 0.7 mg/dL (0.6-1.0) 04/26/19 19:00 Estimated GFR > 60 04/26/19 19:00 Glucose 108 mg/dL (70-100) H 04/26/19 19:00 POC Glucose 109 mg/dL (70-100) H 04/26/19 19:00 Calcium 9.8 mg/dL (8.5-10.4) 04/26/19 19:00 Total Bilirubin 0.4 mg/dL (0.1-1.4) 04/26/19 19:00 Conjugated Bilirubin 0.0 mg/dL (0.0-0.5) 04/26/19 19:00 Unconjugated Bilirubin 0.4 mg/dL (0.0-1.1) 04/26/19 19:00 AST 63 IU/L (14-46) H 04/26/19 19:00 ALT 50 IU/L (9-52) 04/26/19 19:00 Alkaline Phosphatase 115 IU/L (38-126) 04/26/19 19:00 Total Protein 6.2 g/dL (6.3-8.2) L 04/26/19 19:00 Albumin 3.9 g/dL (3.5-5.0) 04/26/19 19:00 Lipase 425 IU/L (23-300) H 04/26/19 19:00 Assessment & Plan Assessment: #Diarrhea (Acute) #Abd Pain #Dehydration #Mild elevated Lipase, Negative imaging #Hypokalemia (Acute) #HTN #Tobacco abuse, has an allergy to nicotine patch. Does not want NRT Plan: Admission IVF Bowel rest tonight Viral PCR replace electrolytes Her lipase is elevated likely from dehydration, diarrhea, and gastric irritation. I do not think she has a pancreatitis DVT proph
[2019-04-27] MEDS: DIVALPROEX ER 250 MG TAB PO SCH ×3 (00:23→21:33)
[2019-04-27] MEDS: DIVALPROEX ER 500 MG TAB PO SCH ×3 (00:24→21:33)
[2019-04-27] MEDS: ROSUVASTATIN CALCIUM 10 MG TAB PO SCH ×2 (00:24→21:33)
[2019-04-27 05:35] LABS: PLATELET COUNT 249 10^3/uL (150-400)
[2019-04-27] MEDS: NS W/ 20 KCl/L 1,000 ML IV SCH ×2 (05:53→15:47)
[2019-04-27] MEDS: GABAPENTIN 400 MG CAP PO SCH ×2 (05:53→12:06)
[2019-04-27] MEDS ORDERED: POTASSIUM CL 10 MEQ TAB PO ONE ×2 (07:16→21:35)
[2019-04-27] MEDS: OXYBUTYNIN 5 MG EXT REL TAB PO SCH (08:53)
[2019-04-27] MEDS: FOLIC ACID 1 MG TAB PO SCH (08:54)
[2019-04-27] MEDS: ATENOLOL 50 MG TAB PO SCH (08:54)
[2019-04-27] MEDS: CHOLECALCIFEROL VIT D3 1,000 UNITS TAB PO SCH (08:55)
[2019-04-27] MEDS: buPROPion SR 150 MG TAB PO SCH (08:55)
[2019-04-27] MEDS: ENOXAPARIN 40 MG/0.4 ML SYR SC SCH (08:58)
[2019-04-27] MEDS ORDERED: DIVALPROEX ER 250 MG TAB PO SCH (09:00)
[2019-04-27] MEDS ORDERED: DIVALPROEX ER 500 MG TAB PO SCH (09:00)
--- NOTE | 2019-04-27 10:39 | HOSPPROG ---
Hospitalist Progress Note Assessment/Plan: #lymphocytic colitis -recent outpt trial or apriso by RAJENDRA Dasilva, didn't help -cancel GI pcr and precautions -likely this is her baseline and should FU with PCP/RAJENDRA Dasilva #bipolar -home meds -says lives alone -consider home RN/SW if not active with [facility] already #Dehydration, resolved #Mild elevated Lipase, Negative imaging #Hypokalemia (Acute), improved #HTN #Tobacco abuse, has an allergy to nicotine patch. Does not want NRT PCP- Dr Villa, but transitioning to [facility] per [facility]- likely discharge in AM, asked CM to reach out to [facility] Subjective: Says no BM for > 48 hrs. Abd pain about same, in low abdomen. Stopped taking latest med from RA[facility]EN[facility] Dasilva as didn't think it was helping. Says cholestyramine worked, but she didn't like taste. Steroids have worked but affected her psych meds/state per [facility] records. No CP/SOB. Objective: Vital Signs Temp Pulse Resp BP Pulse Ox 98.5 F 66 16 159/78 H 95 04/27/19 08:00 04/27/19 08:00 04/27/19 08:00 04/27/19 08:00 04/27/19 08:00 Laboratory Results 04/27/19 04:51 04/27/19 04:51 04/25/19 04/26/19 04/27/19 11:59 11:59 11:59 Intake Total 1033 Output Total 300 Balance 733 - Time Spent With Patient Time Spent with Patient: greater than 35 minutes (revwd [facility] chart) Time Spent with Patient: Greater than 35 minutes spent on this patients care, greater than 50% of time spent counseling, educating, and coordinating care regarding the above mentioned plan. - Physical Exam Constitutional: no apparent distress, appears nourished, not in pain Eyes: anicteric sclera Ears, Nose, Mouth, Throat: moist mucous membranes, hearing normal Cardiovascular: regular rate and rhythym, No edema Respiratory: no respiratory distress, no rales or rhonchi, clear to auscultation Gastrointestinal: normoactive bowel sounds, tenderness (B lower quadrants and suprapubic areas) Skin: warm Psychiatric: not anxious, not encephalopathic, flat affect (not sure of her baseline) ICD10 Worksheet Patient Problems: Problems Problem Status Onset Diarrhea Acute Hypokalemia Acute Pancreatitis Acute Diarrhea Acute
[2019-04-27] MEDS: FAMOTIDINE 20 MG TAB PO SCH ×2 (12:06→21:32)
--- NOTE | 2019-04-27 13:18 | ASMTCMCOM ---
CM Note CM Note Notes: Reviewed chart and spoke with , pt has chronic diarrhea d/t lymphocytic colitis. She lives alone and is followed by GI, she will be transitioning to [facility]. VELIA called [facility] and spoke with Lila but she could not find any info on pt. She will forward pt information to team tomorrow and notifiy them that pt is discharging Saturday. DC Plan: Independent / [facility] Date Signed: 04/27/2019 01:17 PM Electronically Signed By:Krystle Nowak RN
[2019-04-27] MEDS ORDERED: GABAPENTIN 400 MG CAP PO SCH (21:00)
[2019-04-27] MEDS ORDERED: ALLOPURINOL 100 MG TAB PO SCH (21:00)
[2019-04-28 05:02] LABS: PLATELET COUNT 230 10^3/uL (150-400)
[2019-04-28] MEDS: GABAPENTIN 400 MG CAP PO SCH ×2 (05:13→12:43)
[2019-04-28 08:23] VITALS: BP 149/61
[2019-04-28] MEDS: ENOXAPARIN 40 MG/0.4 ML SYR SC SCH (08:33)
[2019-04-28] MEDS: OXYBUTYNIN 5 MG EXT REL TAB PO SCH (08:35)
[2019-04-28] MEDS: FOLIC ACID 1 MG TAB PO SCH (08:35)
[2019-04-28] MEDS: DIVALPROEX ER 500 MG TAB PO SCH (08:35)
[2019-04-28] MEDS: CHOLECALCIFEROL VIT D3 1,000 UNITS TAB PO SCH (08:35)
[2019-04-28] MEDS: ATENOLOL 50 MG TAB PO SCH (08:35)
[2019-04-28] MEDS: DIVALPROEX ER 250 MG TAB PO SCH (08:35)
[2019-04-28] MEDS: FAMOTIDINE 20 MG TAB PO SCH (08:35)
[2019-04-28] MEDS: buPROPion SR 150 MG TAB PO SCH (08:35)
[2019-04-28] MEDS ORDERED: CHOLESTYRAMINE/SUCROSE 4 GM PKT PO SCH (09:45)
--- NOTE | 2019-04-28 09:46 | HOSPPROG ---
Hospitalist Progress Note Assessment/Plan: 73 yo F w lymphocytic colitis, diarrhea, hypokalemia lymphocytic colitis -recent outpt trial or apriso by [facility] Dasilva, didn't help -cancel GI pcr and precautions -likely this is her baseline and should FU with PCP/RAJENDRA Dasilva now amenable to restart cholestyramine bipolar -home meds -says lives alone -consider home RN/SW if not active with [facility] already Dehydration, resolved Mild elevated Lipase, Negative imaging Hypokalemia (Acute), improved HTN Tobacco abuse, has an allergy to nicotine patch. Does not want NRT PCP- Dr Villa, but transitioning to [facility] per [facility]-home today > 30 minutes on dc Subjective: diarrhea this AM Objective: Vital Signs Temp Pulse Resp BP Pulse Ox 36.4 C 58 L 16 149/61 H 95 04/28/19 08:21 04/28/19 08:21 04/28/19 08:21 04/28/19 08:21 04/28/19 08:21 Microbiology 04/27/19 18:00 Gastrointestinal Tract Panel (PCR) - Final Stool No Organism Detected By Pcr Laboratory Results 04/28/19 04:35 04/28/19 04:35 04/27/19 04/28/19 04/29/19 05:59 05:59 05:59 Intake Total 1033 Output Total 200 800 Balance 833 -800 - Physical Exam Constitutional: no apparent distress, appears nourished Eyes: PERRL, anicteric sclera Ears, Nose, Mouth, Throat: moist mucous membranes, hearing normal Cardiovascular: regular rate and rhythym, no murmur, rub, or gallop Respiratory: no respiratory distress, no rales or rhonchi Gastrointestinal: normoactive bowel sounds, soft, non-tender abdomen, No guarding, No rebound Genitourinary: no bladder fullness, No la in urethra Skin: warm, normal color Musculoskeletal: full muscle strength Neurologic: AAOx3 ICD10 Worksheet Patient Problems: Problems Problem Status Onset Diarrhea Acute Hypokalemia Acute Pancreatitis Acute Diarrhea Acute
--- NOTE | 2019-04-28 09:50 | PDIAF ---
- Diagnosis Diagnosis: lymphocytic colitis Code Status: Full Code - Medication Management Discharge Medications: electronically signed and located in the Home Medication List. - Orders Services needed: Home Care, Registered Nurse Home Care Face to Face: I certify that this patient was under my care and that I had the required [id number] encounter meeting the encounter requirements on the discharge day. My findings support the fact that the patient is homebound as defined in Home Care Face to Face Continued: CMS Chapter 7 Medicare Benefits Manual 30.1.1 , The condition of the patient is such that there exists a normal inability to leave home and consequently, leaving home would require a considerable and taxing effort. Isolation Type: None - Follow Up Care Current Providers and Referrals: Shelbi Villa MD [Primary Care Provider] - As per Instructions
--- NOTE | 2019-04-28 09:54 | ASMTLACE ---
LACE Length of stay for Answers: 2 days current admission Acuity / Level of Answers: Yes Care: Did the patient have an inpatient admission? Comorbidities - select Answers: Other Notes: HTN all that apply # of Emergency department Answers: 1-2 visits in the last 6 months Social determinants Answers: Mental health diagnosis (anxiety, depression, pers onality disorders, etc.) Score: 10 Date Signed: 04/28/2019 09:53 AM Electronically Signed By:ARIES Valentino
--- NOTE | 2019-04-28 10:33 | ASMTDCNOTE ---
Case Management Discharge Discharge Order Complete? Answers: Yes Patient to Obtain Answers: Independently Medications Transportation Arranged Answers: Family/Friends EMTALA Complete Answers: No Case Management Transport Answers: No Form Complete Faxed Final Orders Answers: Yes Agency/Facility Transfer Answers: Yes Report Printed & Faxed to Receiving Agency Family Notified Answers: No Discharge Comments Notes: CM spoke to Dr. Petersen about this case. Pt is being d/c'd today. CM notified [facility] of the d/c. Dr. Petersen would like pt to have HC services through [facility]. CM faxed over d/c paperwork to them (F#[phone]). CM available for changes. Plan: [facility] HC follow up Date Signed: 04/28/2019 10:32 AM Electronically Signed By:ARIES Valentino
--- NOTE | 2019-04-28 10:39 | GDS ---
[f rep st] DISCHARGE SUMMARY DISCHARGE DIAGNOSES: 1. Lymphocytic colitis, manifested as diarrhea. 2. Diarrhea. 3. Hypokalemia. 4. Bipolar. 5. Mildly elevated lipase. Please see admission history and physical by Dr. Jamar Noriega. The patient presented with diarrhea and abdominal pain. She had a slightly elevated lipase. This tr ended to normal. Did not have difficulty with eating. Her potassium is 2.8, consistent with Lasix t herapy and diarrhea. Her labs did not really show much in the way of dehydration with a BUN and creatinine of 13 and 0.7 o n presentation. She received IV fluids and restarted on cholestyramine, which she had not enjoyed ta myra because of the taste. She had been started on Apriso as an outpatient, but felt that that was i neffective. She is discharged home with outpatient followup. /[id number]/MODL
--- NOTE | 2019-05-01 14:41 | PDMN ---
Medical Necessity Medical necessity: Pt meets IP criteria per MD & MCG M-565 Inflammatory Bowel Disease; est los >2 mn for lymphocytic colitis w/acute diarrhea, abdominal pain , dehydration, hypokalemia & elevated lipase; admit for further oitoring, bowel rest, IVFs & electrolyte replacement; per order 04/26/19
== END 2019-04-28 13:45 | disposition home health service (06) | DRG 392 ==
LOC: EDBD → EDUNIT# → F3E 22:14
PROVIDERS: ADMIT Family Medicine; ATTEND Family Medicine
DX: K52.832 Lymphocytic colitis (principal); E87.6 Hypokalemia; F31.9 Bipolar disorder, unspecified; E86.0 Dehydration; I10 Essential (primary) hypertension; Z72.0 Tobacco use
CPT/HCPCS: 82435-PO; 82565-PO; 82947-PO; 84132-PO; 84295-PO; 84520-PO; 85014-ER; 97116-GP; 97161-GP; 97166-GO; J1650; J2405; J3475; J3480; Q9967

== ENCOUNTER → 2019-05-27 | Outpatient (CLI) | payer OTHER, MEDICAID | LOC: FCPNEURO 23:24 ==